=== PATIENT | female | born 1990 | race Caucasian/White ===

== ENCOUNTER 2020-07-09 08:12 | Outpatient (CLI) | payer BC, OTHER ==
[2020-07-09 16:46] LABS: SARS-CoV-2 MS2 Positive; SARS-CoV-2 N Gene Negative; SARS-CoV-2 S Gene Negative; SARS-CoV-2 by NAA Not Detected (NotDetected); SARS-CoV-2 orf1ab Negative
== END 2020-07-09 08:13 | disposition home or self-care (01) ==
LOC: LABBT 08:12
PROVIDERS: ATTEND Obstetrics & Gynecology
DX: Z20.828 Contact with and (suspected) exposure to other viral communicable diseases (principal)
CPT/HCPCS: 87635; U0003

== ENCOUNTER 2020-07-13 19:58 | Inpatient (IN) | payer BC, OTHER ==
[2020-07-13 20:47] VITALS: BMI 31.2
[2020-07-13] MEDS ORDERED: Zolpidem Tartrate 5 MG TAB PO PRN (21:27)
[2020-07-13] MEDS ORDERED: Misoprostol 200 MCG TAB PR PRN (21:27)
[2020-07-13] MEDS ORDERED: Methylergonovine 0.2 MG/ML VIAL IM PRN (21:27)
[2020-07-13] MEDS ORDERED: Promethazine HCl 25 MG/ML VIAL IM PRN (21:27)
[2020-07-13] MEDS ORDERED: Lidocaine 1% (PF) 30 ML VIAL SC PRN (21:27)
[2020-07-13] MEDS ORDERED: Ondansetron PF 4 MG/2 ML Vial IVP PRN (21:27)
[2020-07-13] MEDS ORDERED: NS / Oxytocin 40 units/1000ml 1,000 ML IV PRN (21:27)
[2020-07-13] MEDS ORDERED: Docusate 100 MG CAP PO PRN (21:27)
[2020-07-13] MEDS ORDERED: HYDROcodone/Acetaminophen 5/325 mg Tablet PO PRN ×2 (21:27)
[2020-07-13] MEDS ORDERED: hydrALAZINE 20 MG/ML VIAL SLOW IVP PRN (21:27)
[2020-07-13] MEDS ORDERED: Carboprost 250 MCG/ML AMP IM PRN (21:27)
[2020-07-13] MEDS ORDERED: Ibuprofen 800 MG TAB PO PRN (21:27)
[2020-07-13] MEDS ORDERED: Acetaminophen 500 MG TAB PO PRN (21:27)
[2020-07-13] MEDS ORDERED: Diphenoxylate HCl/Atropine Tablet PO PRN ×2 (21:27)
[2020-07-13] MEDS ORDERED: Butorphanol Tartrate 1 MG/ML VIAL SLOW IVP PRN (21:27)
--- NOTE | 2020-07-13 21:33 | PDOC.LDHP ---
Labor and Delivery H&P HPI: 29 y/o At 39 and 3/7 weeks presents for elective term induction of labor. Current gestational age (weeks): 39 Due date: 07/17/20 Grav: 2 Para: 0 Abnormal US findings: No Current medications: pre-curtis vitamins Allergies/Adverse Reactions: Allergies Allergy/AdvReac Type Severity Reaction Status Date / Time No Known Allergies Allergy Verified 07/13/20 20:48 Social history: drug use (THC USE noted Daily prior to .) - Physical Exam Vital signs reviewed and normal: yes General: NAD, resting, breathing through contractions Heart: RRR Lungs: CTAB Abdomen: gravid Extremeties: no edema FHT: category 1 - Assessment L&D Assessment: elective induction at term - Plan Plan: admit to L&D, cervical ripening
[2020-07-13] MEDS: Misoprostol 100 MCG TAB VAG SCH (21:50)
[2020-07-13 21:54] LABS: Hemoglobin 12.1 g/dL (12.0-16.0); Mean Corpuscular HGB CONC 34.5 g/dL (32.0-36.0); Mean Corpuscular Hemoglobin 32.7 pg (27.0-31.0); Mean Corpuscular Volume 94.7 fL (78.0-98.0); Mean Platelet Volume 7.5 fL (7.4-10.4); Platelet Count 261 thou/uL (130-400); RBC Distribution Width 12.1 % (11.5-14.5); Red Blood Cell (RBC) Count 3.69 mill/uL (4.20-5.40); White Blood Cell (WBC) Count 18.3 thou/uL (4.8-10.8)
[2020-07-13] MEDS ORDERED: Penicillin G Potassium 5 MILL.UNITS in Sodium Chloride 0.9% 100 ML IVPB SCH (22:00)
[2020-07-13 22:32] LABS: Syphilis Antibody Nonreactive (Nonreactive); Syphilis Antibody Index 0.03 S/CO (<1.00 Non-Reactive)
[2020-07-13 22:56] LABS: HBSAg Index 0.12 S/CO (0-0.99); Hep B Surf Ag Non-Reactive S/CO (NonReactive)
[2020-07-14] MEDS: Misoprostol 100 MCG TAB VAG SCH ×2 (01:55→10:26)
[2020-07-14] MEDS ORDERED: NS w/ Oxytocin 30 units 500 ML IVPB SCH ×2 (04:00)
[2020-07-14] MEDS: Lactated Ringer's 1,000 ML IV SCH (08:00)
[2020-07-14] MEDS: Penicillin G 2.5 MILL.units 2.5 MILL.UNITS in Premix Bag 1 BAG IVPB SCH ×2 (17:45→21:45)
[2020-07-15] MEDS: Penicillin G 2.5 MILL.units 2.5 MILL.UNITS in Premix Bag 1 BAG IVPB SCH ×5 (01:45→15:02)
[2020-07-15] MEDS ORDERED: Penicillin G 2.5 MILL.units 50 ML ONE ×2 (01:54→10:10)
[2020-07-15] MEDS ORDERED: Fentanyl 4 mcg/Bup 0.1% Cadd 100 ML in Premix Bag 1 BAG EPIDURAL SCH (03:00)
[2020-07-15] MEDS ORDERED: Lactated Ringer's 500 ML IV PRN (03:44)
[2020-07-15] MEDS ORDERED: Ondansetron PF 4 MG/2 ML Vial IVP PRN ×2 (03:44→14:40)
[2020-07-15] MEDS ORDERED: Promethazine HCl 25 MG/ML VIAL IM PRN ×2 (03:44→14:40)
[2020-07-15] MEDS ORDERED: Naloxone HCl 0.4 mg/ml Vial IVP PRN ×2 (03:44)
[2020-07-15] MEDS ORDERED: Acetaminophen 325 MG TAB PO PRN (03:44)
[2020-07-15] MEDS ORDERED: ePHEDrine 50 MG/ML VIAL SLOW IVP PRN (03:44)
[2020-07-15] MEDS ORDERED: diphenhydrAMINE 50 MG/ML VIAL IVP PRN (03:44)
[2020-07-15] MEDS ORDERED: Communication Order-Pharmacy FS SCH (03:45)
[2020-07-15] MEDS ORDERED: Fentanyl 4 mcg/Bupivacaine 0.1% Cassette 100 ML EPIDURAL SCH (03:45)
[2020-07-15] MEDS: Lactated Ringer's 1,000 ML IV SCH ×2 (10:18→15:02)
[2020-07-15] MEDS ORDERED: Lidocaine 1% (PF) 30 ML VIAL ONE (11:41)
[2020-07-15] MEDS ORDERED: HYDROcodone/Acetaminophen 5/325 mg Tablet PO PRN ×2 (14:40)
[2020-07-15] MEDS ORDERED: Milk Of Magnesia 30 ML UDCUP PO PRN (14:40)
[2020-07-15] MEDS ORDERED: Preparation H Ointment 28 GM TUBE PR PRN (14:40)
[2020-07-15] MEDS ORDERED: Bisacodyl 10 MG SUPP PR PRN (14:40)
[2020-07-15] MEDS ORDERED: Benzocaine-Menthol 82.5 ML CAN TOP PRN (14:40)
[2020-07-15] MEDS ORDERED: NS / Oxytocin 40 units/1000ml 1,000 ML IV SCH (14:40)
[2020-07-15] MEDS ORDERED: diphenhydrAMINE 25 MG CAP PO PRN (14:40)
[2020-07-15] MEDS ORDERED: Zolpidem Tartrate 5 MG TAB PO PRN (14:40)
[2020-07-15] MEDS ORDERED: Lanolin Ointment 7 GM TUBE TOP PRN (14:40)
[2020-07-15] MEDS ORDERED: Misoprostol 200 MCG TAB VAG PRN (14:40)
[2020-07-15] MEDS ORDERED: hydrALAZINE 20 MG/ML VIAL SLOW IVP PRN (14:40)
[2020-07-15] MEDS: Misoprostol 100 MCG TAB VAG SCH ×2 (15:03→15:04)
[2020-07-15] MEDS: Ferrous Sulfate 325 MG TAB PO SCH (16:46)
[2020-07-15] MEDS: Docusate Calcium (SURFAK) 240 MG CAP PO SCH (21:34)
[2020-07-15] MEDS: Ibuprofen 800 MG TAB PO SCH (21:34)
[2020-07-16] MEDS: Ibuprofen 800 MG TAB PO SCH ×2 (05:28→13:31)
[2020-07-16 06:30] LABS: Hemoglobin 10.1 g/dL (12.0-16.0); Mean Corpuscular HGB CONC 34.5 g/dL (32.0-36.0); Mean Corpuscular Hemoglobin 32.4 pg (27.0-31.0); Mean Corpuscular Volume 93.7 fL (78.0-98.0); Mean Platelet Volume 7.4 fL (7.4-10.4); Platelet Count 213 thou/uL (130-400); Red Blood Cell (RBC) Count 3.12 mill/uL (4.20-5.40); White Blood Cell (WBC) Count 14.8 thou/uL (4.8-10.8)
--- NOTE | 2020-07-16 07:55 | DN ---
DATE OF PROCEDURE: 07/15/2020 TIME: 1208 Central Standard time. PREOPERATIVE DIAGNOSIS: Intrauterine at 39 weeks and 5 days with a term induction of labor. POSTOPERATIVE DIAGNOSIS: Intrauterine at 39 weeks and 5 days with a term induction of labor. PROCEDURE PERFORMED: Spontaneous vaginal delivery over second-degree laceration of the perineum. FINDINGS: Viable male infant weighing 3040 g or 6 pounds 11 ounces. Apgars 8 and 9. QUANTITATIVE BLOOD LOSS: 200 mL. COMPLICATIONS: None. PROCEDURE IN DETAIL: The patient presented to [facility] where she was admitted to the labor and delivery service. The patient underwent a normal and uneventful labor with normal cervical dilatation until she was found to be completely dilated. She was then allowed to push and was able to bring the baby down and delivered the baby in a vertex presentation without difficulties. Once the head delivered in occiput anterior position, the shoulders followed spontaneously along with the rest of the baby's body. Once out the baby's mouth and nose were bulb suctioned. The cord was clamped and cut and baby was handed to waiting attendants. Cord blood was collected. Gentle fundal massage was performed and the placenta delivered intact without problems. Hemostasis was assured. Quantitative blood loss was calculated. Inspection of the cervix, vaginal vault, and perineum did not reveal any lacerations needing suturing. Once again, hemostasis was within normal limits and the patient was allowed to recover in the labor and delivery room. Baby went to nursery. Job ID: [id number]
--- NOTE | 2020-07-16 08:03 | PDOC.PP ---
Post Progress Note Post Day #: 1 PO intake tolerated: yes Flatus: yes Ambulation: yes Vital Signs (12 hours) Temp Pulse Resp BP 07/16/20 05:36 98.1 F 62 16 112/65 Weight Weight 171 lb - Physical Examination General: NAD Cardiovascular: no m/r/g, RRR Respiratory: clear to auscultation bilaterally Abdominal: + bowel sounds, lochia, no distention Extremities: negative homans (B) Skin: CS incision dry & intact, no rash Neurological: no gross focal deficits Psychiatric: A&Ox3, normal affect Result Diagrams: 07/16/20 06:17 Additional Labs: Post Labs Hep Bs Antigen Non-Reactive S/CO (NonReactive) 07/13/20 21:37 Blood Type A POSITIVE 07/13/20 23:46
[2020-07-16 08:17] VITALS: TEMP 97.8
[2020-07-16] MEDS ORDERED: Prenatal Vitamin 1 TAB PO SCH (09:00)
[2020-07-16] MEDS: Ferrous Sulfate 325 MG TAB PO SCH (09:03)
[2020-07-16] MEDS: Docusate Calcium (SURFAK) 240 MG CAP PO SCH (09:50)
[2020-07-16 11:59] VITALS: BP 112/64
[2020-07-16] MEDS ORDERED: FLU VACC QS2020-21(6MOS UP)/PF 60 MCG/0.5 ML SYRINGE IM ONE (12:45)
[2020-07-16] MEDS ORDERED: Varicella virus, LIVE 0.5 ML VIAL SC ONE (14:40)
[2020-07-16] MEDS ORDERED: Adacel (T-DAP) 0.5 ML SYRINGE IM ONE (14:40)
[2020-07-16] MEDS ORDERED: Measles/Mumps/Rubella 10 MCG/0.5 ML VIAL SC ONE (14:40)
== END 2020-07-16 14:55 | disposition home or self-care (01) | DRG 807 ==
LOC: L&D 19:58 → 3SW 07-15 15:43
PROVIDERS: ADMIT Obstetrics & Gynecology; ATTEND Obstetrics & Gynecology
PROC: 10E0XZZ Delivery of Products of Conception, External Approach (ICD-10-PCS; principal; 2020-07-15)
PROC: 0KQM0ZZ Repair Perineum Muscle, Open Approach (ICD-10-PCS; 2020-07-15)
PROC: 3E0P7VZ Introduction of Hormone into Female Reproductive, Via Natural or Artificial Opening (ICD-10-PCS; 2020-07-15)
PROC: 3E033VJ Introduction of Other Hormone into Peripheral Vein, Percutaneous Approach (ICD-10-PCS; 2020-07-15)
PROC: 3E0234Z Introduction of Serum, Toxoid and Vaccine into Muscle, Percutaneous Approach (ICD-10-PCS; 2020-07-16)
PROC: 3E02340 Introduction of Influenza Vaccine into Muscle, Percutaneous Approach (ICD-10-PCS; 2020-07-16)
DX: O70.1 Second degree perineal laceration during delivery (principal); Z37.0 Single live birth; Z3A.39 39 weeks gestation of pregnancy; Z23 Encounter for immunization
CPT/HCPCS: 36415; 51702; 85027; 86780; 86850; 86900; 86901; 87340; 90471; 90662; 90715; G0008; J0595; J2405; J2540; J2590; J3490